=== PATIENT | female | born 1950 | race Caucasian/White ===

== ENCOUNTER → 2018-08-05 | Outpatient (CLI) | payer OTHER, BC ==
[~2018-08-05] VITALS: Ht 165.1 cm; Wt 51.3 kg
[~2018-08-05] MED LIST: BUDESONIDE EC3 MG PO; CRESTOR40 MG PO; ELIQUIS5 MG PO; PROTONIX40 M1 PO; TOPROL XL100 MG PO; TOPROL XL25 MG PO; VERAPAMIL ER180 MG PO
--- NOTE | ~2018-08-05 | HPC ---
[facility] [place] [address] PAIN MANAGEMENT CONSULTATION Name: ANNABELLE CAMACHO Room #: [facility].#: [id number] Admission: 08/05/18 Attend Phys: Ajit Yates MD Discharge: Date of : 50 Report #: [id number] THIS REPORT FOR: //name// CC: Corey Yates DATE OF SERVICE: 08/05/2018 CHIEF COMPLAINT: Low back pain radiating into the right hip and radiating now into the groin. HISTORY OF PRESENT ILLNESS: The patient is a pleasant 67-year-old who Dr. Stafford has asked me to see in consultation. She has symptoms that would suggest either the low back or right hip pathology. She has had longstanding back pain for many years. The radiation into the groin is new. She describes it as a steady, burning, shooting, aching, sharp, stabbing, cramping pain, 6 at its least and a 9 at its worst. Today, she scores it as a 6. She has had only Tylenol as a treatment due to her use of anti-inflammatories. She has had no physical therapy. CURRENT MEDICATIONS: Budesonide delayed release, pantoprazole, lovastatin, metoprolol, verapamil, Eliquis, Prolia. ALLERGIES: PENICILLIN and CLINDAMYCIN. PAST MEDICAL HISTORY: Hypertension, scarlet fever, osteoarthritis involving knee. She had an arthroscopy in 2007 and other joints cause aches and pains including her hips. She has atrial fibrillation and has recently been started on Eliquis. She is intermittently in and out of sinus rhythm. She has had a previous hysterectomy in 1995. SOCIAL HISTORY: She is . 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 She continues to smoke a pack of cigarettes a day and has done so for 45 years. Her has quit. We encouraged her to discontinue. She was counseled for about 5 minutes this morning with strategies for quitting the use of tobacco. She drinks 3 light scotch and water nightly. REVIEW OF SYSTEMS: Positive for a 20-pound weight loss due to colitis. She follows with Dr. Hansen and is on steroids in treatment. She complains of fatigue and weakness and the weight loss has contributed to her back pain as she becomes more debilitated and weaker. She has a loss of appetite. PHYSICAL EXAMINATION: GENERAL: She is a pleasant, very slender female. She moves from sitting to [facility] [address] [place] [address] PAIN MANAGEMENT CONSULTATION Name: ANNABELLE CAMACHO Room #: [facility]#: [id number] Admission: 08/05/18 Attend Phys: Ajit Yates MD Discharge: Date of : 50 Report #: [id number] standing position and stands with some difficulty and straightening. VITAL SIGNS: She has a blood pressure of 181/78, heart rate 69, respirations 16, 100% saturation on room air. BMI is now down to 18.8. HEENT: Pupils are equal, round, reactive to light. EOMs are intact. Mucous membranes are moist. NECK: Supple. CHEST: Reveals decreased breath sounds, but no audible wheezing. CARDIAC: Rhythm is regular today. She is not in atrial fibrillation in our office. ABDOMEN: Scaphoid and soft, no organomegaly. MUSCULOSKELETAL: Examination of the spine reveals a levorotational scoliosis and mild tenderness across the lumbosacral segment. She has pain with forward flexion and extension. This radiates some pain down into the right hip and into the groin. Straight leg raising is negative. Examination of the hips is also negative. She has very little pain with internal and external rotation. Sensation is intact. Deep tendon reflexes are trace bilaterally at knees and ankles. There is no asymmetry. Generalized mild nonfocal weakness is noted in the lower extremities. X-RAYS: I only have plain film reports from Dr. Stafford's office, which identifies levoscoliosis and there is, however, multiple degenerative disease and facet arthropathy noted as might be expected per age. LABORATORY DATA: Reveals mild elevation of glucose. With use of statin, her cholesterol and VLDL is very low. IMPRESSION: Low back pain with levoscoliosis, degenerative facet arthropathy and radiculopathy in L3 distribution. I do not believe that this is her hip based on exam. Plain film x-rays might be worthwhile, but her exam suggests more of a radicular pain radiating into an L3 distribution. She cannot have an epidural while on Eliquis, it is 3 days off. We have offered an appointment for such. Weight gain and exercise on a regular basis will help to maintain some score stability. I am concerned about her weight loss, I am sure all of her physicians are. She needs to maintain muscle mass throughout and particularly around the spine to help support and manage pain. Daily walking program and Gabriel flexion exercises were ordered. We will consider a course of physical therapy if she is unmotivated. [facility] [address] [place] [address] PAIN MANAGEMENT CONSULTATION Name: ANNABELLE CAMACHO Room #: [facility]ono#: [id number] Admission: 08/05/18 Attend Phys: Ajit Yates MD Discharge: Date of : 50 Report #: [id number] Followup visit planned for an injection as needed. <ELECTRONICALLY SIGNED> By: Ajit Yates MD 08/05/18 [id number] Ajit Yates MD /nt
[2018-08-05 09:21] VITALS: BP 181/78
== END ==
LOC: PAIN 08:29
DX: M54.16 Radiculopathy, lumbar region (principal); M41.86 Other forms of scoliosis, lumbar region; Z79.899 Other long term (current) drug therapy

== ENCOUNTER → 2020-01-31 | Outpatient (CLI) | payer OTHER | LOC: SJCVC 11:31 | DX: R94.31 Abnormal electrocardiogram [ECG] [EKG] (principal); I11.9 Hypertensive heart disease without heart failure; I25.10 Atherosclerotic heart disease of native coronary artery without angina pectoris; I48.0 Paroxysmal atrial fibrillation; I87.2 Venous insufficiency (chronic) (peripheral); E78.00 Pure hypercholesterolemia, unspecified; D68.59 Other primary thrombophilia; R93.1 Abnormal findings on diagnostic imaging of heart and coronary circulation; M19.90 Unspecified osteoarthritis, unspecified site ==

== ENCOUNTER → 2020-10-18 | Outpatient (CLI) | payer OTHER | LOC: SJCVC 09:54 | PROVIDERS: ATTEND Internal Medicine Cardiovascular Disease | DX: R94.31 Abnormal electrocardiogram [ECG] [EKG] (principal); I25.10 Atherosclerotic heart disease of native coronary artery without angina pectoris; I11.9 Hypertensive heart disease without heart failure; I48.0 Paroxysmal atrial fibrillation; I87.2 Venous insufficiency (chronic) (peripheral); I73.00 Raynaud's syndrome without gangrene; R93.1 Abnormal findings on diagnostic imaging of heart and coronary circulation; R06.00 Dyspnea, unspecified; F17.210 Nicotine dependence, cigarettes, uncomplicated; Z79.899 Other long term (current) drug therapy; Z88.0 Allergy status to penicillin; Z88.8 Allergy status to other drugs, medicaments and biological substances; Z72.89 Other problems related to lifestyle ==

== ENCOUNTER → 2020-12-06 | Outpatient (CLI) | payer OTHER | LOC: SJCVCIMAG 08:18 | PROVIDERS: ATTEND Internal Medicine Cardiovascular Disease | DX: I34.0 Nonrheumatic mitral (valve) insufficiency (principal); I49.1 Atrial premature depolarization; I25.10 Atherosclerotic heart disease of native coronary artery without angina pectoris; I48.0 Paroxysmal atrial fibrillation; R06.00 Dyspnea, unspecified; I10 Essential (primary) hypertension; R53.83 Other fatigue; F17.200 Nicotine dependence, unspecified, uncomplicated ==

== ENCOUNTER → 2021-04-09 | Outpatient (CLI) | payer OTHER | LOC: MRI 08:18 | PROVIDERS: ATTEND Neuromusculoskeletal Medicine & OMM | DX: M51.16 Intervertebral disc disorders with radiculopathy, lumbar region (principal); M48.061 Spinal stenosis, lumbar region without neurogenic claudication; M41.86 Other forms of scoliosis, lumbar region; M48.07 Spinal stenosis, lumbosacral region ==

== ENCOUNTER → 2021-05-15 | Outpatient (CLI) | payer OTHER ==
[~2021-05-15] VITALS: Ht 165.1 cm; Wt 55.8 kg
[~2021-05-15] MED LIST changes: +ACETAMINOPHEN325 M1 PO; -BUDESONIDE EC3 MG PO; +NIFEDIPINE ER30 M1 PO; +PROLIA60 MG/1 ML SUBQ; +XANAX 0.25 MG0.25 MG PO
[2021-05-15 08:27] VITALS: BP 169/87
--- NOTE | 2021-05-15 08:55 | NUR ---
Pain Clinic Assessment: 1. History of Osteoarthritis: BACK History of Rheumatoid Arthritis: Not Applicable 2. Height: 5 ft. 5 in. 165.1 cm. Weight: 123.0 lb. oz. 55.792 kg. Patient's BMI: 20.5 3. Vital Signs: BP: 169/87 Pulse: 68 Resp: 14 Temp: 02 Sat: 100 ECG Mon: 4. Pain Intensity: 4 5. Fall Risk: Dizziness: N Needs help standing or walking: N Fallen in the last 3 months: N Fall risk comments: 6. Patient on Blood Thinner: ELIQUIS 7. History of Hypertension: N 8. Opioid Therapy greater than 6 weeks: N Opiate Contract Signed: 9. Risk Assessment Tool Provided: 3 LOWRISK 10. Functional Assessment Tool: 11. Recreational Drug Use: Never Drug Type: Tobacco Use: Current Every Day Smoker Tobacco Type: Cigarettes Amount or Packs/day: 1 PACK How Many Years: 30 Alcohol Use: Yes Frequency: Daily Quant: 2
== END ==
LOC: PAIN 07:31
PROVIDERS: ATTEND Anesthesiology Pain Medicine
DX: M41.86 Other forms of scoliosis, lumbar region (principal); M48.061 Spinal stenosis, lumbar region without neurogenic claudication; M54.17 Radiculopathy, lumbosacral region; I10 Essential (primary) hypertension; A38.9 Scarlet fever, uncomplicated; M17.9 Osteoarthritis of knee, unspecified; I48.91 Unspecified atrial fibrillation; Z88.8 Allergy status to other drugs, medicaments and biological substances; Z79.899 Other long term (current) drug therapy; Z90.710 Acquired absence of both cervix and uterus

== ENCOUNTER → 2021-06-05 | Outpatient (CLI) | payer OTHER ==
[~2021-06-05] VITALS: Ht 165.1 cm; Wt 57.8 kg
[2021-06-05 09:31] VITALS: BP 159/89
--- NOTE | 2021-06-05 09:50 | NUR ---
Pain Clinic Assessment: 1. History of Osteoarthritis: BACK History of Rheumatoid Arthritis: Not Applicable 2. Height: 5 ft. 5 in. 165.1 cm. Weight: 127.4 lb. oz. 57.788 kg. Patient's BMI: 21.2 3. Vital Signs: BP: 159/89 Pulse: 70 Resp: 14 Temp: 02 Sat: 100 ECG Mon: 4. Pain Intensity: 4 5. Fall Risk: Dizziness: N Needs help standing or walking: N Fallen in the last 3 months: N Fall risk comments: 6. Patient on Blood Thinner: ELIQUIS 7. History of Hypertension: N 8. Opioid Therapy greater than 6 weeks: N Opiate Contract Signed: 9. Risk Assessment Tool Provided: 3 LOWRISK 10. Functional Assessment Tool: 11. Recreational Drug Use: Never Drug Type: Tobacco Use: Current Every Day Smoker Tobacco Type: Cigarettes Amount or Packs/day: 1 pack How Many Years: Alcohol Use: Yes Frequency: Daily Quant: 2
== END ==
LOC: PAIN 07:02
PROVIDERS: ATTEND Anesthesiology Pain Medicine
DX: M54.5 Low back pain (principal); M51.16 Intervertebral disc disorders with radiculopathy, lumbar region; I10 Essential (primary) hypertension; I48.91 Unspecified atrial fibrillation; M17.0 Bilateral primary osteoarthritis of knee; Z90.710 Acquired absence of both cervix and uterus; Z98.890 Other specified postprocedural states; Z88.0 Allergy status to penicillin; Z88.1 Allergy status to other antibiotic agents; Z79.899 Other long term (current) drug therapy

== ENCOUNTER → 2021-07-04 | Outpatient (CLI) | payer OTHER | LOC: SJCVC 10:02 | PROVIDERS: ATTEND Internal Medicine Cardiovascular Disease | DX: R94.31 Abnormal electrocardiogram [ECG] [EKG] (principal); I49.1 Atrial premature depolarization; I11.9 Hypertensive heart disease without heart failure; I25.10 Atherosclerotic heart disease of native coronary artery without angina pectoris; E78.00 Pure hypercholesterolemia, unspecified; E78.2 Mixed hyperlipidemia; I48.0 Paroxysmal atrial fibrillation; I73.00 Raynaud's syndrome without gangrene; R93.1 Abnormal findings on diagnostic imaging of heart and coronary circulation; D68.59 Other primary thrombophilia; M54.9 Dorsalgia, unspecified; G89.29 Other chronic pain; E55.9 Vitamin D deficiency, unspecified; R13.10 Dysphagia, unspecified; Z90.711 Acquired absence of uterus with remaining cervical stump; Z98.890 Other specified postprocedural states; F17.200 Nicotine dependence, unspecified, uncomplicated; Z88.0 Allergy status to penicillin; Z88.1 Allergy status to other antibiotic agents; Z79.899 Other long term (current) drug therapy ==

== ENCOUNTER → 2021-07-24 | Outpatient (CLI) | payer OTHER ==
[~2021-07-24] VITALS: Ht 165.1 cm; Wt 57.6 kg
[2021-07-24 08:19] VITALS: BP 152/78
--- NOTE | 2021-07-24 08:32 | NUR ---
Pain Clinic Assessment: 1. History of Osteoarthritis: BACK History of Rheumatoid Arthritis: Not Applicable 2. Height: 5 ft. 5 in. 165.1 cm. Weight: 127.0 lb. oz. 57.607 kg. Patient's BMI: 21.1 3. Vital Signs: BP: 152/78 Pulse: 72 Resp: 16 Temp: 02 Sat: 99 ECG Mon: 4. Pain Intensity: 6-7 WITH ACTIVITY 5. Fall Risk: Dizziness: N Needs help standing or walking: N Fallen in the last 3 months: N Fall risk comments: 6. Patient on Blood Thinner: MARIYAQUIS 7. History of Hypertension: N 8. Opioid Therapy greater than 6 weeks: N Opiate Contract Signed: 9. Risk Assessment Tool Provided: 3 LOWRISK 10. Functional Assessment Tool: 11. Recreational Drug Use: Never Drug Type: Tobacco Use: Current Every Day Smoker Tobacco Type: Cigarettes Amount or Packs/day: 1 PACK How Many Years: 40 Alcohol Use: Yes Frequency: Daily Quant: 3 DRINKS
== END | disposition home or self-care (01) ==
LOC: PAIN 08:02
PROVIDERS: ATTEND Anesthesiology Pain Medicine
DX: M54.16 Radiculopathy, lumbar region (principal); G89.29 Other chronic pain; I10 Essential (primary) hypertension; I48.91 Unspecified atrial fibrillation; M19.90 Unspecified osteoarthritis, unspecified site; F17.210 Nicotine dependence, cigarettes, uncomplicated; Z98.890 Other specified postprocedural states; Z79.899 Other long term (current) drug therapy; Z79.01 Long term (current) use of anticoagulants; Z90.711 Acquired absence of uterus with remaining cervical stump; Z88.0 Allergy status to penicillin

== ENCOUNTER → 2021-08-23 | Outpatient (CLI) | payer OTHER | LOC: SJCVCIMAG 11:17 | PROVIDERS: ATTEND Internal Medicine Cardiovascular Disease | DX: I65.23 Occlusion and stenosis of bilateral carotid arteries (principal); F41.9 Anxiety disorder, unspecified; I48.91 Unspecified atrial fibrillation; I25.10 Atherosclerotic heart disease of native coronary artery without angina pectoris; I87.2 Venous insufficiency (chronic) (peripheral); E78.00 Pure hypercholesterolemia, unspecified; I10 Essential (primary) hypertension; F17.210 Nicotine dependence, cigarettes, uncomplicated; E11.9 Type 2 diabetes mellitus without complications; Z88.1 Allergy status to other antibiotic agents; Z72.89 Other problems related to lifestyle; Z88.0 Allergy status to penicillin; Z79.82 Long term (current) use of aspirin; Z79.899 Other long term (current) drug therapy ==

== ENCOUNTER → 2021-09-04 | Outpatient (CLI) | payer OTHER ==
[~2021-09-04] VITALS: Ht 165.1 cm; Wt 59.0 kg
[2021-09-04 08:46] VITALS: BP 145/71
--- NOTE | 2021-09-04 08:51 | NUR ---
Pain Clinic Assessment: 1. History of Osteoarthritis: BACK History of Rheumatoid Arthritis: Not Applicable 2. Height: 5 ft. 5 in. 165.1 cm. Weight: 130.0 lb. oz. 58.968 kg. Patient's BMI: 21.6 3. Vital Signs: BP: 145/71 Pulse: 62 Resp: 16 Temp: 02 Sat: 100 ECG Mon: 4. Pain Intensity: 5 5. Fall Risk: Dizziness: N Needs help standing or walking: N Fallen in the last 3 months: N Fall risk comments: 6. Patient on Blood Thinner: ELIQUIS 7. History of Hypertension: N 8. Opioid Therapy greater than 6 weeks: N Opiate Contract Signed: 9. Risk Assessment Tool Provided: 3 LOWRISK 10. Functional Assessment Tool: 11. Recreational Drug Use: Never Drug Type: Tobacco Use: Current Every Day Smoker Tobacco Type: Cigarettes Amount or Packs/day: 1 PACK How Many Years: Alcohol Use: Yes Frequency: Daily Quant: 3
== END | disposition home or self-care (01) ==
LOC: PAIN 06:54
PROVIDERS: ATTEND Anesthesiology Pain Medicine
DX: M54.16 Radiculopathy, lumbar region (principal); G89.29 Other chronic pain; I10 Essential (primary) hypertension; I48.91 Unspecified atrial fibrillation; F17.210 Nicotine dependence, cigarettes, uncomplicated; Z98.890 Other specified postprocedural states; Z79.899 Other long term (current) drug therapy; Z90.710 Acquired absence of both cervix and uterus; Z79.01 Long term (current) use of anticoagulants; Z88.0 Allergy status to penicillin; Z88.8 Allergy status to other drugs, medicaments and biological substances

== ENCOUNTER → 2021-09-20 | Outpatient (CLI) | payer BC | LOC: SJCVC 09:30 | PROVIDERS: ATTEND Internal Medicine Cardiovascular Disease | DX: R94.31 Abnormal electrocardiogram [ECG] [EKG] (principal); I25.10 Atherosclerotic heart disease of native coronary artery without angina pectoris; I65.23 Occlusion and stenosis of bilateral carotid arteries; R53.83 Other fatigue; I48.0 Paroxysmal atrial fibrillation; R00.2 Palpitations; D68.59 Other primary thrombophilia; R42 Dizziness and giddiness; R55 Syncope and collapse; F41.9 Anxiety disorder, unspecified; R51.9 Headache, unspecified; I87.2 Venous insufficiency (chronic) (peripheral); E78.00 Pure hypercholesterolemia, unspecified; I10 Essential (primary) hypertension; F17.210 Nicotine dependence, cigarettes, uncomplicated; Z79.899 Other long term (current) drug therapy; Z72.89 Other problems related to lifestyle; Z88.0 Allergy status to penicillin; Z88.1 Allergy status to other antibiotic agents ==